=== PATIENT | male | born 1940 | race Caucasian/White ===

== ENCOUNTER 2018-09-22 10:23 | Inpatient (IN) | payer MEDICARE, MEDICAID ==
[~2018-09-22] VITALS: Ht 170.2 cm; Wt 67.7 kg
[2018-11-05 06:37] VITALS: BP 98/58
== END 2018-11-05 12:09 | DRG 870 ==
LOC: ED 12:27 → EDIP 12:28 → ED 12:43 → 5SO 16:28 → CCU 09-23 18:35 → 3NW 10-14 10:53 → 3NE 10-16 11:54
PROVIDERS: ADMIT Internal Medicine; ATTEND Internal Medicine
PROC: 0BH17EZ Insertion of Endotracheal Airway into Trachea, Via Natural or Artificial Opening (ICD-10-PCS; 2018-09-23)
PROC: 5A1955Z Respiratory Ventilation, Greater than 96 Consecutive Hours (ICD-10-PCS; principal; 2018-09-27)
PROC: 30233N1 Transfusion of Nonautologous Red Blood Cells into Peripheral Vein, Percutaneous Approach (ICD-10-PCS; 2018-10-07)
DX: A41.02 Sepsis due to Methicillin resistant Staphylococcus aureus (principal); J96.01 Acute respiratory failure with hypoxia; G93.41 Metabolic encephalopathy; E43 Unspecified severe protein-calorie malnutrition; N17.0 Acute kidney failure with tubular necrosis; G04.90 Encephalitis and encephalomyelitis, unspecified; J15.212 Pneumonia due to Methicillin resistant Staphylococcus aureus; I63.81 Other cerebral infarction due to occlusion or stenosis of small artery; I21.A1 Myocardial infarction type 2; I33.0 Acute and subacute infective endocarditis; Z99.11 Dependence on respirator [ventilator] status; N39.0 Urinary tract infection, site not specified; K56.7 Ileus, unspecified; E87.0 Hyperosmolality and hypernatremia; E87.1 Hypo-osmolality and hyponatremia; G62.81 Critical illness polyneuropathy; I13.0 Hypertensive heart and chronic kidney disease with heart failure and stage 1 through stage 4 chronic kidney disease, or unspecified chronic kidney disease; I76 Septic arterial embolism; E87.2 Acidosis; Z51.5 Encounter for palliative care; K80.20 Calculus of gallbladder without cholecystitis without obstruction; R65.20 Severe sepsis without septic shock; Z66 Do not resuscitate; E11.22 Type 2 diabetes mellitus with diabetic chronic kidney disease; E11.21 Type 2 diabetes mellitus with diabetic nephropathy; E78.5 Hyperlipidemia, unspecified; D75.82 Heparin induced thrombocytopenia (HIT); E86.0 Dehydration; D63.8 Anemia in other chronic diseases classified elsewhere; F17.210 Nicotine dependence, cigarettes, uncomplicated; R13.10 Dysphagia, unspecified; I71.4 Abdominal aortic aneurysm, without rupture; N18.9 Chronic kidney disease, unspecified; B19.20 Unspecified viral hepatitis C without hepatic coma; L89.90 Pressure ulcer of unspecified site, unspecified stage; I65.23 Occlusion and stenosis of bilateral carotid arteries; I35.0 Nonrheumatic aortic (valve) stenosis; F15.10 Other stimulant abuse, uncomplicated; E87.6 Hypokalemia; I50.9 Heart failure, unspecified; Z86.73 Personal history of transient ischemic attack (TIA), and cerebral infarction without residual deficits; Z78.1 Physical restraint status; Z79.899 Other long term (current) drug therapy
CPT/HCPCS: 36415; 36600; 70450; 70544; 70551; 71045; 71250; 71275; 74018; 74176; 74230; 76700; 80048; 80053; 80061; 80074; 80076; 80202; 80307; 81001; 82140; 82330; 82533; 82550; 82570; 82607; 82728; 82803; 82962; 83036; 83540; 83550; 83605; 83735; 83880; 84100; 84132; 84145; 84295; 84300; 84439; 84443; 84478; 84484; 85025; 85520; 85610; 85651; 85730; 86022; 86140; 86850; 86900; 86923; 87040; 87070; 87077; 87081; 87086; 87147; 87186; 87205; 87521; 87806; 93005; 93308; 93312; 93321; 93325; 93880; 94002; 94003; 94640; 94667; 96361; 96374; C8929; G0378; J0456; J0696; J0712; J0878; J1644; J1940; J2020; J2250; J2543; J2704; J3370; J3411; J3475; J3480; J7042; J7620; P9047; Q9967; C9113; G0475; J1652; J1815; J2060; J2270; J2930; J7030; J7040; J7050; P9016